=== PATIENT | female | born 1990 | race African-American/Black ===

== ENCOUNTER 2017-11-28 01:07 | Outpatient (CLI) | payer OTHER ==
[2017-11-28] MEDS ORDERED: LR 1,000 ML IV (01:30)
[2017-11-28 02:03] LABS: HEMATOCRIT 35.7 % (36.0-47.0); HEMOGLOBIN 11.5 g/dl (12.0-15.5); MEAN CORPUSCULAR HEMOGLOBIN 33.3 pg (27.0-33.0); MEAN CORPUSCULAR HGB CONC 32.2 g/dl (32.0-36.5); MEAN CORPUSCULAR VOLUME 103.5 fl (80.0-96.0); PLATELET COUNT, AUTOMATED 185 10^3/uL (150-450); RED BLOOD COUNT 3.45 10^6/uL (4.00-5.40); RED CELL DISTRIBUTION WIDTH 12.7 % (11.5-14.5); WHITE BLOOD COUNT 10.6 10^3/uL (4.0-10.0)
[2017-11-28 02:22] LABS: AMORPHOUS SEDIMENT SMALL (NEGATIVE); APPEARANCE, URINE HAZY (CLEAR); BACTERIA, URINE AUTO NEGATIVE (NEGATIVE); BILIRUBIN, URINE AUTO NEGATIVE (NEGATIVE); BLOOD, URINE BLOOD NEGATIVE (NEGATIVE); COLOR, URINE YELLOW (YELLOW); GLUCOSE, URINE (UA) AUTO NEGATIVE (NEGATIVE); KETONE, URINE AUTO NEGATIVE (NEGATIVE); LEUKOCYTE ESTERASE, URINE AUTO NEGATIVE (NEGATIVE); MUCUS, URINE SMALL (NEGATIVE); NITRITE, URINE AUTO NEGATIVE (NEGATIVE); PROTEIN, URINE AUTO NEGATIVE (NEGATIVE); RBC, URINE AUTO 1 /HPF (0-3); SPECIFIC GRAVITY URINE AUTO 1.006 (1.002-1.035); SQUAMOUS EPITHELIAL CELL UR AU 0 /HPF (0-6); UROBILINOGEN, URINE AUTO 0.2 mg/dL (0.0-2.0); WBC, URINE AUTO 1 /HPF (0-3)
== END 2017-11-28 03:25 | disposition home or self-care (01) ==
LOC: M LDO 01:07
DX: O99.89 Other specified diseases and conditions complicating pregnancy, childbirth and the puerperium (principal); Z3A.28 28 weeks gestation of pregnancy; R10.12 Left upper quadrant pain
CPT/HCPCS: 76775

== ENCOUNTER 2018-01-26 05:33 | Inpatient (IN) | payer OTHER ==
[2018-01-26 07:05] LABS: BASO % 0.3 % (0.0-1.0); EOS # 0.1 10^3/uL (0.0-0.50); HEMATOCRIT 41.1 % (36.0-47.0); HEMOGLOBIN 13.3 g/dl (12.0-15.5); IMMATURE GRANULOCYTE % 0.5 % (0-3.0); LYMPH # 1.4 10^3/uL (1.5-6.5); LYMPH % 23.2 % (24.0-44.0); MEAN CORPUSCULAR HEMOGLOBIN 33.4 pg (27.0-33.0); MEAN CORPUSCULAR HGB CONC 32.4 g/dl (32.0-36.5); MEAN CORPUSCULAR VOLUME 103.3 fl (80.0-96.0); MONO # 0.6 10^3/uL (0.0-0.8); MONO % 9.4 % (0.0-5.0); NEUTROPHILS # 3.9 10^3/uL (1.8-7.7); NEUTROPHILS % 65.6 % (36.0-66.0); PLATELET COUNT, AUTOMATED 192 10^3/uL (150-450); RED BLOOD COUNT 3.98 10^6/uL (4.00-5.40); RED CELL DISTRIBUTION WIDTH 12.3 % (11.5-14.5)
[2018-01-26] MEDS: LR 1,000 ML IV ×2 (10:57→18:53)
[2018-01-26] MEDS: BUTORPHANOL 2 MG/ML INJ (J0595) IV (10:58)
[2018-01-26] MEDS: miSOPROStol 25 MCG 1/4 TAB (S0191) PO ×3 (11:01→20:00)
[2018-01-26] MEDS ORDERED: OXYTOCIN DRIP 30 UNITS in APPROPRIATE DILUENT 1 EA IV (21:00)
[2018-01-26] MEDS ORDERED: FENTANYL 2MCG/ML ROPIVACAINE 0.2% IN 0.9% NACL 200ML IVBAG As Ordered (21:34)
[2018-01-26] MEDS ORDERED: EPIDURAL COMMENT XX (23:15)
[2018-01-26] MEDS ORDERED: LACTATED RINGER'S 1000 ML IV (23:15)
[2018-01-26] MEDS ORDERED: EPIDURAL/PCA KEYS XX (23:15)
[2018-01-26] MEDS: FENTANYL/ROPIVACAINE/NACL BAG 200 ML EPIDURAL (23:15)
[2018-01-26] MEDS ORDERED: NALOXONE INJ 0.4 MG/1 ML VIAL (J2310) IV (23:15)
[2018-01-26] MEDS ORDERED: ONDANSETRON 4MG/2ML VIAL (J2405) IV (23:15)
[2018-01-26] MEDS ORDERED: ePHEDrine SULFATE 25 MG/5 ML(5MG/ML) SYRINGE IV (23:15)
[2018-01-26] MEDS ORDERED: diphenhydrAMINE INJ 50MG/ML VIAL (J1200) IV (23:15)
[2018-01-26] MEDS ORDERED: REFRIGERATOR IV KEYS XX (23:15)
[2018-01-27 02:28] LABS: CORD GAS ABE V -3.9; CORD GAS HCO3 V 23.2 MEQ/L; CORD GAS O2 SAT V 68.1 %; CORD GAS PCO2 V 49.8 mmHg; CORD GAS PH V 7.286 UNITS; CORD GAS PO2 V 31.1 mmHg; CORD GAS SBC V 20.6 MEQ/L; CORD GAS TCO2 V 24.7 MEQ/L
[2018-01-27 02:30] LABS: CORD GAS ABE A -10.5; CORD GAS HCO3 A 22.3 MEQ/L; CORD GAS O2 SAT A 43.3 %; CORD GAS PCO2 A 87.4 mmHg; CORD GAS PH A 7.024 UNITS; CORD GAS PO2 A 27.2 mmHg; CORD GAS SBC A 15.2 MEQ/L; CORD GAS TCO2 A 24.9 MEQ/L
[2018-01-27] MEDS ORDERED: DOCUSATE SODIUM 100 MG CAP PO (02:45)
[2018-01-27] MEDS ORDERED: MEASLES,MUMPS,RUBELLA VACCINE INJ (MMR-II) (90707) SC (02:45)
[2018-01-27] MEDS ORDERED: RHOGAM 300 MCG (1500 IU) INJ (J2790) IM (02:45)
[2018-01-27] MEDS ORDERED: DIBUCAINE 1% OINTMENT 30GM TOP (02:45)
[2018-01-27] MEDS: IBUPROFEN 800 MG TAB PO ×2 (05:09→15:10)
[2018-01-27] MEDS: FENTANYL/ROPIVACAINE/NACL BAG 200 ML EPIDURAL ×2 (05:23)
[2018-01-27] MEDS: OXYTOCIN DRIP 30 UNITS in APPROPRIATE DILUENT 1 EA IV (05:23)
[2018-01-27] MEDS: LR 1,000 ML IV (05:23)
[2018-01-27] MEDS: PRENATAL VITAMINS CHEWABLE TABLET PO (09:51)
[2018-01-27] MEDS: ACETAMINOPHEN 500 MG TAB PO (19:45)
[2018-01-28] MEDS: PRENATAL VITAMINS CHEWABLE TABLET PO (08:59)
[2018-01-28] MEDS: IBUPROFEN 800 MG TAB PO (08:59)
== END 2018-01-28 14:50 | disposition home or self-care (01) | DRG 775 ==
LOC: M LDO 05:33 → M OBS 01-27 04:30 → M LDI 06:29
PROVIDERS: Obstetrics & Gynecology
PROC: 10E0XZZ Delivery of Products of Conception, External Approach (ICD-10-PCS; principal; 2018-01-27)
PROC: 0HQ9XZZ Repair Perineum Skin, External Approach (ICD-10-PCS; 2018-01-27)
DX: O69.1XX0 Labor and delivery complicated by cord around neck, with compression, not applicable or unspecified (principal); Z37.0 Single live birth; Z3A.37 37 weeks gestation of pregnancy; O70.0 First degree perineal laceration during delivery

== ENCOUNTER 2018-07-26 12:31 | Emergency (ER) | payer OTHER ==
[~2018-07-26] VITALS: Ht 157.5 cm; Wt 81.8 kg
[~2018-07-26 12:31] MED LIST: COLA100C5 PO; IBUP-1114 PO; MAPA500T2 PO; NUPE1OIN2 TOP; PRENTAB9 PO
[2018-07-26 12:32] VITALS: BP 129/88
[2018-07-26] MEDS ORDERED: PARAIUD IU (12:41)
== END 2018-07-26 14:10 | disposition left against medical advice (07) ==
LOC: M ED 12:31
DX: H57.10 Ocular pain, unspecified eye (principal); Z53.21 Procedure and treatment not carried out due to patient leaving prior to being seen by health care provider

== ENCOUNTER 2019-09-13 18:15 | Emergency (ER) | payer OTHER ==
[~2019-09-13] VITALS: Ht 167.6 cm; Wt 77.3 kg
[~2019-09-13 18:15] MED LIST changes: +PARA1IUD IU
[2019-09-13] MEDS ORDERED: KETOROLAC 30 MG/ML 1ML VIAL IV ONE (19:00)
[2019-09-13] MEDS ORDERED: ONDANSETRON 4MG/2ML VIAL IV ONE (19:00)
[2019-09-13] MEDS ORDERED: NS 1,000 ML IV ONE (19:00)
[2019-09-13 19:46] LABS: BASO % 0.3 % (0.0-1.0); EOS % 0.4 % (0.0-3.0); HEMATOCRIT 40.2 % (36.0-47.0); HEMOGLOBIN 12.7 g/dl (12.0-15.5); LYMPH # 0.9 10^3/uL (1.5-5.0); LYMPH % 11.9 % (24.0-44.0); MEAN CORPUSCULAR HEMOGLOBIN 31.1 pg (27.0-33.0); MEAN CORPUSCULAR HGB CONC 31.6 g/dl (32.0-36.5); MEAN CORPUSCULAR VOLUME 98.5 fl (80.0-96.0); MONO # 0.6 10^3/uL (0.0-0.8); NEUTROPHILS # 5.9 10^3/uL (1.5-8.5); NEUTROPHILS % 79.1 % (36.0-66.0); PLATELET COUNT, AUTOMATED 198 10^3/uL (150-450); RED BLOOD COUNT 4.08 10^6/uL (4.00-5.40); WHITE BLOOD COUNT 7.4 10^3/uL (4.0-10.0)
[2019-09-13 20:03] LABS: BLOOD UREA NITROGEN 12 MG/DL (7-18); CALCIUM LEVEL 8.6 MG/DL (8.5-10.1); CARBON DIOXIDE LEVEL 29 MEQ/L (21-32); CHLORIDE LEVEL 105 MEQ/L (98-107); CREATININE FOR GFR 0.86 MG/DL (0.55-1.30); GLOMERULAR FILTRATION RATE > 60.0 (>60); GLUCOSE, FASTING 94 MG/DL (70-100); POTASSIUM SERUM 3.9 MEQ/L (3.5-5.1); SODIUM LEVEL 138 MEQ/L (136-145)
[2019-09-13 20:27] VITALS: BP 102/60
[2019-09-13] MEDS ORDERED: MAPA500C PO (20:39)
[2019-09-13] MEDS ORDERED: KEFL500C17 PO (20:39)
[2019-09-13] MEDS ORDERED: IBUP80TA PO (20:39)
--- NOTE | 2019-09-14 02:05 | REP ---
Clinical: Chest pain and fever. Rule out pneumonia . Comparison: None . Technique: PA and lateral. Findings: The mediastinum and cardiac silhouette are normal. The lung reis are clear and without acute consolidation, effusion, or pneumothorax. The skeletal structures are intact and normal. Impression: 1. No acute cardiopulmonary process. Electronically Signed by Max Lyons MD 09/14/2019 01:56 A
== END 2019-09-13 20:49 | disposition home or self-care (01) ==
LOC: M ED 18:15
DX: N39.0 Urinary tract infection, site not specified (principal); R51 Headache; Z97.5 Presence of (intrauterine) contraceptive device
CPT/HCPCS: 71046; 80048; 81001; 85025; 87086; 96361; 96374; 96375; 99284; J1885; J2405